=== PATIENT | male | born 1985 | race African-American/Black ===

== ENCOUNTER 2024-03-22 08:48 | Emergency (ER) | payer OTHER ==
[~2024-03-22] VITALS: Ht 175.3 cm; Wt 90.7 kg
[2024-03-22 08:50] VITALS: BP 181/104; TEMP 98.5
[2024-03-22] MEDS ORDERED: GENT5DRO23 EACHEYE (09:00)
[2024-03-22 09:05] VITALS: O2SAT 98
== END 2024-03-22 09:33 | disposition home or self-care (01) ==
LOC: ER 08:48
DX: H10.9 Unspecified conjunctivitis (principal); Z79.899 Other long term (current) drug therapy